=== PATIENT | female | born 1980 | race Caucasian/White ===

== ENCOUNTER 2024-03-08 10:40 | Emergency (ER) | payer MEDICAID, OTHER ==
[~2024-03-08] VITALS: Ht 170.2 cm; Wt 67.6 kg
[~2024-03-08 10:40] MED LIST: AMOX500C2 PO
[2024-03-08 10:47] VITALS: BP 146/89; TEMP 98.2; O2SAT 97
[2024-03-08] MEDS ORDERED: CYCL5TAB PO (11:43)
[2024-03-08] MEDS ORDERED: IBUP-1955 PO (11:43)
[2024-03-08] MEDS ORDERED: METH4TAB17 PO (11:43)
[2024-03-08] MEDS ORDERED: HYDR-4303 PO (11:43)
[2024-03-08] MEDS ORDERED: LIDO30AD10 TP (11:43)
== END 2024-03-08 11:54 | disposition home or self-care (01) ==
LOC: ER 10:45
DX: M54.12 Radiculopathy, cervical region (principal); M25.512 Pain in left shoulder